=== PATIENT | female | born 1940 ===

== ENCOUNTER 2017-08-26 12:38 | Emergency (ER) | payer OTHER ==
[2017-08-26 12:53] VITALS: RESP 18; O2SAT 99
--- NOTE | 2017-08-26 13:16 | ED PDOC ---
HPI: Wound Care - HPI Time Seen by Provider: 08/26/17 13:01 Chief Complaint (Nursing): Wound Check Chief Complaint (Provider): Wound Check History Per: Patient Exam Limitations: no limitations Onset/Duration Of Symptoms: Days Current Symptoms Are (Timing): Still Present Additional Complaint(s): 77 year old female with a past medical history of hypertension who presents to the emergency department with a complaint of a non healing wound to the left anterior ankle/upper foot, left foot pain, and left fourth/fifth digit pain ongoing for several months. Reports large fluid filled blister that drained spontaneously several months ago that has not healed since. Associated with redness to the area and notes that she may have bumped the foot last week but unclear with history. Denies diabetes, fever, weakness, chest pain, or shortness of breath. Of note, patient is visiting from [facility]. Past Medical History Reviewed: Historical Data, Nursing Documentation, Vital Signs Vital Signs: Last Vital Signs Temp 97.8 F 08/26/17 12:48 Pulse 78 08/26/17 12:48 Resp 18 08/26/17 12:48 BP 162/77 H 08/26/17 12:48 Pulse Ox 99 08/26/17 12:48 - Medical History PMH: HTN Denies: Diabetes - Surgical History Surgical History: No Surg Hx - Family History Family History: States: Unknown Family Hx - Social History Current smoker - smoking cessation education provided: No Alcohol: None Drugs: Denies - Allergies Allergies/Adverse Reactions: Allergies Allergy/AdvReac Type Severity Reaction Status Date / Time No Known Allergies Allergy Verified 08/26/17 12:48 Review of Systems ROS Statement: Except As Marked, All Systems Reviewed And Found Negative (As per HPI, otherwise negative) Constitutional: Negative for: Fever Cardiovascular: Negative for: Chest Pain Respiratory: Negative for: Shortness of Breath Musculoskeletal: Positive for: Foot Pain (Left), Other (left fourth/fifth digit pain) Skin: Positive for: Other (Non healing wound to the left foot with redness around the area. ) Physical Exam - Reviewed Nursing Documentation Reviewed: Yes Vital Signs Reviewed: Yes - Physical Exam Appears: Positive for: Well, Non-toxic, No Acute Distress Head Exam: Positive for: ATRAUMATIC, NORMAL INSPECTION, NORMOCEPHALIC Skin: Positive for: Normal Color, Warm, Dry Cardiovascular/Chest: Positive for: Regular Rate, Rhythm. Negative for: Murmur Respiratory: Positive for: Normal Breath Sounds. Negative for: Accessory Muscle Use, Wheezing, Respiratory Distress Extremity: Positive for: Tenderness (Discoloration to the fourth digit with tenderness to the lateral foot region. ), Other (2 cm non erythematous ulcer on the anterior aspect of the junction of the left foot and ankle with mild surrounding edema. ) Neurologic/Psych: Positive for: Alert, Oriented (x3) - ECG O2 Sat by Pulse Oximetry: 99 (RA) Pulse Ox Interpretation: Normal Medical Decision Making Medical Decision Making: Time: 1306 Initial impression: Wound care Initial plan: Left ankle x-ray Left foot x-ray AccuCheck Reevaluation Time: 1333 --Left foot x-ray FINDINGS: BONES: Osteopenia. No acute fracture. No periosteal reaction. JOINTS: Degenerative changes SOFT TISSUES: Normal. OTHER FINDINGS: Achilles enthesophyte. IMPRESSION: Osteopenia. No demonstrated fracture, dislocation or evidence of periosteal reaction. Time: 1334 --Left ankle x-ray FINDINGS: BONES: Osteopenia. No acute fracture. No periosteal reaction JOINTS: Ankle mortise maintained. Talar dome intact SOFT TISSUES: Normal. OTHER FINDINGS: Achilles enthesophyte IMPRESSION: Osteopenia. No demonstrated fracture, dislocation or evidence of periosteal reaction. podiatry consult performed and wound care initiated. No abx recommended at this time as does not appear grossly infected. Refer to wound care. Results d/w family and patient. Scribe Attestation: Documented by Neelam North, acting as a scribe for Travis Ríos DO. Provider Scribe Attestation: All medical record entries made by the Scribe were at my direction and personally dictated by me. I have reviewed the chart and agree that the record accurately reflects my personal performance of the history, physical exam, medical decision making, and the department course for this patient. I have also personally directed, reviewed, and agree with the discharge instructions and disposition. Disposition - Clinical Impression Clinical Impression: Wound, open, foot - Patient ED Disposition Is Patient to be Admitted: No - Disposition Referrals: [facility] [Outside] Disposition: Routine/Home Disposition Time: 15:01 Condition: STABLE Additional Instructions: Keep wound dry and protected, see wound care center for followup. Instructions: Wound Care (DC) Forms: [facility] (Czech) Print Language: ROMANIAN
--- NOTE | 2017-08-26 13:35 | RAD ---
PROCEDURE: Left Foot Radiographs. HISTORY: L ankle/foot ulcer COMPARISON: Nine. FINDINGS: BONES: Osteopenia. No acute fracture. No periosteal reaction. JOINTS: Degenerative changes SOFT TISSUES: Normal. OTHER FINDINGS: Achilles enthesophyte. IMPRESSION: Osteopenia. No demonstrated fracture, dislocation or evidence of periosteal reaction.
--- NOTE | 2017-08-26 13:36 | RAD ---
PROCEDURE: Left Ankle Radiographs. HISTORY: L ankle/foot ulcer COMPARISON: None FINDINGS: BONES: Osteopenia. No acute fracture. No periosteal reaction JOINTS: Ankle mortise maintained. Talar dome intact SOFT TISSUES: Normal. OTHER FINDINGS: Achilles enthesophyte IMPRESSION: Osteopenia. No demonstrated fracture, dislocation or evidence of periosteal reaction.
--- NOTE | 2017-08-26 14:24 | CP.PCM.CON ---
History of Present Illness - History of Present Illness History of Present Illness: Podiatry - Dr. Hurtado 77F PMHx HTN seen in ED regarding a non-healing wound to the left ankle and painful left 4th digit. Family present at bedside who provide HPI. Per family, patient has had the wound to the front of her left ankle for several months. Patient is visiting from [facility]; states she has a doctor in who diagnosed her with a venous stasis ulceration, and provides wound care with applications of topical medication regularly. Patient states she also receives oral medication for her phlebitis but does not remember the name. Patient states she presented to ED requesting for a more permanent procedure to close this wound. Patient also complains of pain in her left 4th digit; states she thinks she stubbed her toe yesterday and since then the digit became bruised and painful. States she is able to ambulate with the assistance of a cane; though ambulates infrequently due to previous surgery in her right hip and right knee. Denies other pedal complaints. Castillo N/V/F/D/C/SOB. Review of Systems - Review of Systems All systems: reviewed and no additional remarkable complaints except (as per HPI ) Past Patient History - Past Social History Alcohol: None Drugs: Denies - CARDIAC Hx Hypertension: Yes - PSYCHIATRIC Hx Substance Use: No Meds Allergies/Adverse Reactions: Allergies Allergy/AdvReac Type Severity Reaction Status Date / Time No Known Allergies Allergy Verified 08/26/17 12:48 Physical Exam - Constitutional Appears: Well, Non-toxic, No Acute Distress - Extremities Exam Additional comments: LLE focused physical exam: VASC: DP and PT pulses weakly palpable 1/4. CFT <3 seconds to digits, including 4th digit. Temperature cool to cool b/l, no increase in warmth noted to anterolateral ankle ulceration. Nonpitting edema noted to 4th digit. NEURO: Gross sensation intact. DERM: Full thickness ulceration measuring approximately 2.6 x 1.6 x 0.1 cm noted to anterolateral ankle joint - noted to have a 90% fibrotic and 10% granular base with rolled edges; no drainage noted; no purulence; no fluctuance ; no ascending cellulitis.Venous stasis dermatitis present circumfirentially around lower leg and ankle joint. Ecchymosis noted to entire 4th digit; no open lesions noted to 4th digit. ORTHO: Mild tenderness to palpation ankle wound. Pain on palpation 4th digit; pain upon ROM 4th digit. Muscle strength 5/5 for all dorsiflexors, plantarflexors, inverters, and everters. - Neurological Exam Neurological exam: Alert, Oriented x3 - Psychiatric Exam Psychiatric exam: Normal Affect, Normal Mood Results - Vital Signs Recent Vital Signs: Last Vital Signs Temp 97.8 F 08/26/17 12:48 Pulse 78 08/26/17 12:48 Resp 18 08/26/17 12:48 BP 162/77 H 08/26/17 12:48 Pulse Ox 99 08/26/17 14:17 Assessment & Plan - Assessment and Plan (Free Text) Assessment: 77 year old female PMHx hypertension with 1) venous stasis ulceration left ankle , 2) left 4th digit pain Plan: Patient seen and evaluated Discussed with attending, Dr. Hurtado Left ankle and foot XR reviewed: Negative for acute fracture, no periosteal reaction Venous stasis ulceration appears stable at this time -Recommend compression and elevation for lower extremity edema Xeroform, DSD applied to ankle wound - keep clean/dry/intact until follow up visit 3rd and 4th digits sofie splinted, surgical shoe dispensed -Advised patient to ambulate in surgical shoe with digits sofie splinted until follow up appointment Pain control per ED Patient to follow up in the wound care center upon discharge Thank you for the consult
[2017-08-26 16:00] VITALS: BP 165/84; PULSE 74; TEMP 98.2
== END 2017-08-26 15:45 | disposition home or self-care (01) ==
LOC: H.ER 12:38
DX: L97.529 Non-pressure chronic ulcer of other part of left foot with unspecified severity (principal); I10 Essential (primary) hypertension